=== PATIENT | male | born 1995 | race Caucasian/White ===

== ENCOUNTER 2017-04-26 09:17 | Emergency (ER) | payer MEDICAID ==
[2017-04-26 09:24] VITALS: O2SAT 98
--- NOTE | 2017-04-26 09:43 | EDPHY ---
H & P Time Seen by Provider: 04/26/17 09:27 HPI/ROS: CHIEF COMPLAINT: Left knee injury, left upper extremity injury HISTORY OF PRESENT ILLNESS: 21-year-old male presents to the emergency department after he fell off of his skateboard around 3:00 p.m. Yesterday. He was not wearing a helmet. He thinks that he did hit his head. He however did not lose consciousness. He has no headache. No neck or back pain. No chest pain or difficulty breathing. He has pain especially in his left knee. He is also having pain in his left wrist and left hand. He sustained multiple abrasions that he had on his own. He believes his tetanus shot is current. He denies abdominal pain or vomiting. Denies paresthesias in his upper or lower extremities. REVIEW OF SYSTEMS: Constitutional: No fever, no chills. Eyes: No double or blurry vision. ENT: No sore throat. Respiratory: No cough, no shortness of breath. Cardiac: No chest pain. Gastrointestinal: No abdominal pain, vomiting or diarrhea. Genitourinary: No dysuria. Musculoskeletal: As above. No neck or back pain. Skin: Abrasions per No rashes. Neurological: No headache. Past Medical/Surgical History: Concussions Social History: [employer] student Smoking Status: Never smoked Physical Exam: General Appearance: Alert, no distress. No visible signs of trauma to his head. Mentating normally and answering questions appropriately. Eyes: Pupils equal and round. Extraocular motions are all intact. ENT: Mouth: Mucous membranes moist. No hemotympanum. No dental injury or malocclusion. Respiratory: No wheezing, rhonchi, or rales, lungs are clear to auscultation. Cardiovascular: Regular rate and rhythm. Gastrointestinal: Abdomen is soft and nontender, no masses, no rebound or guarding, bowel sounds normal. Neurological: Alert and oriented x 3, cranial nerves II through XII grossly intact Skin: Superficial abrasion noted to the right posterior aspect elbow. Superficial abrasions noted to the palm of his left hand get there is also superficial abrasions to the anterior aspect and lateral aspect of his left knee. Warm and dry, no rashes. Musculoskeletal: Nontender to palpate along the cervical, thoracic or lumbar spine. Neck is supple. Extremities: Examination of the left hand reveals swelling specially over the thenar eminence. There is ecchymosis noted palm of the hand. He has pain with palpation to the 1st MCP joint of the left hand. He has limited range of motion of the left thumb secondary to pain and swelling. He has some mild pain with palpation along the proximal phalanx of the thumb as well as 1st metacarpal. Ecchymosis and swelling noted to the volar aspect of his left wrist. The patient has limited supination secondary to pain. He has limited flexion and extension. He has some mild pain with palpation in the anatomic snuffbox in the left hand. Left knee reveals obvious swelling, ecchymosis and abrasions to the anterior aspect. The patient is unable to lift his leg actively because of pain. Passively I a.m. Able to lift his left leg without discomfort however he is unable to hold his left leg in the air without significant discomfort. Left flexion of the left knee secondary to pain. Unable to assess ligament stability given gross swelling and discomfort. Antalgic gait. Psychiatric: Patient is oriented X 3, there is no agitation. Constitutional: Initial Vital Signs Temperature (C) 36.4 C 04/26/17 09:20 Heart Rate 71 04/26/17 09:20 Respiratory Rate 16 04/26/17 09:20 Blood Pressure 121/71 H 04/26/17 09:20 O2 Sat (%) 98 04/26/17 09:20 O2 Delivery Mode Room Air Allergies/Adverse Reactions: No Known Allergies Allergy (Unverified 04/26/17 09:21) Home Medications: Medication Instructions Recorded Albuterol Sulfate [Proventil Hfa] 6.7 gm IH 04/26/17 Medical Decision Making - Diagnostics Imaging: Discussed imaging studies w/ bilingual call center representative Radiologist, I viewed and interpreted images myself Procedures: The patient was placed in Ortho Glass thumb spica splint to the left wrist and straight leg knee immobilizer to the left knee and examined post application in good placement with normal INDUSTRIAL SALES REPRESENTATIVE. ED Course/Re-evaluation: 21-year-old male presents to the emergency department after he fell off his skateboard yesterday. X-rays reveal left patellar fracture, fracture of the base of the 1st metacarpal of the left thumb, and pisiform fracture of the left hand. The patient was appropriately splinted and placed in knee immobilizer. He may weightbear as tolerated. I did speak with the on-call orthopedic surgeon, Dr. Jacobson, who will see him in the office tomorrow to determine if surgical intervention is necessary. Patient was encouraged to ice and elevate and will return if he has any other concerns. Differential Diagnosis: Including but not limited to fracture, dislocation, contusion, sprain - Data Points Medications Given: Discontinued Medications Tetracaine/Epinephrine/Lidocaine (Let Gel Topical) 1 ea TP EDNOW ONE Stop: 04/26/17 10:15 Last Admin: 04/26/17 10:21 Dose: 1 ea Departure - Departure Disposition: Home, Routine, Self-Care Clinical Impression: Right hand fracture Qualifiers: Encounter type: initial encounter Fracture type: closed Qualified Code(s): S62.91XA - Unspecified fracture of right wrist and hand, initial encounter for closed fracture Patella fracture Qualifiers: Encounter type: initial encounter Fracture type: closed Fracture morphology: unspecified fracture morphology Fracture alignment: displaced Laterality: left Qualified Code(s): S82.002A - Unspecified fracture of left patella, initial encounter for closed fracture Condition: Good Instructions: Hand Fracture (ED), Patellar Fracture (ED) Additional Instructions: Keep splint on and keep it dry. Keep knee immobilizer on. Weightbear as tolerated. Ibuprofen 600 mg every 8 hr as needed for pain. Ice to help reduce swelling. Follow up with orthopedic surgery tomorrow to recheck. Referrals: Maya Jacobson MD [Medical Doctor] - 1 day without fail (Orthopedic surgeon on- call, call to arrange a follow-up appointment to be seen tomorrow.)
[2017-04-26] MEDS ORDERED: LET GEL TOPICAL 1 EA SYR TP ONE (10:14)
[2017-04-26 11:32] VITALS: BP 137/68; PULSE 85; RESP 95; TEMP 98.2
== END 2017-04-26 11:39 | disposition home or self-care (01) ==
DX: S62.201A Unspecified fracture of first metacarpal bone, right hand, initial encounter for closed fracture (principal); S82.002A Unspecified fracture of left patella, initial encounter for closed fracture; V00.131A Fall from skateboard, initial encounter; Y93.51 Activity, roller skating (inline) and skateboarding

== ENCOUNTER 2017-05-23 17:55 | Emergency (ER) | payer MEDICAID ==
[2017-05-23 18:01] VITALS: BP 119/77; PULSE 59; RESP 18; TEMP 98.4; O2SAT 93
--- NOTE | 2017-05-23 18:11 | EDPHY ---
H & P Time Seen by Provider: 05/23/17 18:02 HPI/ROS: CHIEF COMPLAINT: Concerned about infection and pins falling out HISTORY OF PRESENT ILLNESS: 21-year-old male seen emergency department originally on 04/26/2017 after he fell a skateboard was found to have fracture of the base of 1st metacarpal and pisiform fracture of the left hand. He was subsequently seen by Dr. Jacobson with surgery few days later. He is in the ER stating that the most dorsal pin has migrated outward and appears to almost be falling out, as well as erythema s. No fetid odor. No lymphangitic streaking. He is also needing refill of dressings. He has an appointment with Dr. Jacobson on Wednesday (today is Wednesday). No fever no chills. No nausea or vomiting. No flu- like symptoms. PHYSICAL EXAM (Prior to examination, patient consented to physical exam, hands were washed and my usual and customary physical exam procedures followed) 1) GENERAL: Well-developed, well-nourished, alert and oriented. Appears to be in no acute distress. Smiling. 2) HEAD: Normocephalic 3) HEENT: Pupils equal, round, reactive to light bilaterally. 4) LUNGS: Breathing comfortably. 5) MUSCULOSKELETAL: Dressing taken down. No fetid odor. No discharge. The most dorsal pin has migrated externally but is still in place my examine with his hand in pronation with his hand. When the patient supinated his hand the most dorsal pin spontaneously fell out. I did not remove the pin. There is no lymphangitic streaking. There is a slight amount of halo erythema at each pain insertion site. Soft compartments. Otherwise, Normal coloration. Crepitus. 6) SKIN: No lymphangitic streaking 7) VASCULAR: pulses and cap refill present are brisk DIFFERENTIAL DIAGNOSIS: in no particular order including but not limited to misplaced hardware, infected hardware, septic arthritis, surgical wound infection Smoking Status: Never smoked Constitutional: Initial Vital Signs Temperature (C) 36.9 C 05/23/17 17:59 Heart Rate 59 L 05/23/17 17:59 Respiratory Rate 18 05/23/17 17:59 Blood Pressure 119/77 05/23/17 17:59 O2 Sat (%) 93 05/23/17 17:59 O2 Delivery Mode Room Air Allergies/Adverse Reactions: No Known Allergies Allergy (Verified 05/23/17 17:58) Home Medications: Medication Instructions Recorded Albuterol Sulfate [Proventil Hfa] 6.7 gm IH 04/26/17 Cephalexin [Keflex] 500 mg PO TID 7 Days cap 05/23/17 MDM/Departure - MDM Procedures: Procedure: Splint AnOrtho Glass thumb spica was applied by ER soil conservation technician after the wounds were dressed with antibiotic ointment and nonstick sterile dressings. After application of the splint I returned and re-examined the patient. The splint was adequately immobilizing the joint and distal to the splint the patient's circulation and sensation were intact. Patient shows no signs of compartment syndrome. Was given orthopedic precautions. Medications Given: Discontinued Medications Cephalexin (Keflex 500 Mg Prepack#4) 1 btl TAKEHOME EDNOW ONE PRN Reason: Protocol Stop: 05/23/17 19:09 Last Admin: 05/23/17 19:19 Dose: 1 btl ED Course/Re-evaluation: 6:52 p.m.: I consulted and communicated electronically with Dr. Jacobson. As today is Wednesday and as the patient has an upcoming appointment on Wednesday with Dr. Jacobson, Dr. Jacobson informs that he was planning on removing the pins on Wednesday anyway. Recommends no further intervention from the emergency department tonight, recommends patient keep his appointment on Wednesday. Regarding the patient's Velcro thumb spica states that this is quite uncomfortable places stress on particular areas. Subsequently an Orthoglass thumb spica splint was built for the patient resulting in more comfort. I do not identify signs of deep space infection, is negative kanavel sign. He is concerned about a slight amount of erythema. He has been informed that early infection is not ruled out. Plan will be starting the patient on Keflex and keep his appoint with Dr. Jacobson on Wednesday. Patient feels comfortable this plan. Care of patient under supervision of secondary supervising physician Dr Bruce. - Depart Disposition: Home, Routine, Self-Care Clinical Impression: Hand fracture, left Qualifiers: Encounter type: subsequent encounter Fracture type: closed Fracture healing: with routine healing Qualified Code(s): S62.92XD - Unspecified fracture of left wrist and hand, subsequent encounter for fracture with routine healing Condition: Good Instructions: Cephalexin (By mouth), Hand Fracture (ED) Additional Instructions: Keep the area dressed and splinted until you are seen by Dr. Jacobson. Keep her appointment on Wednesday with Dr. Jacobson Prescriptions: Cephalexin [Keflex] 500 mg PO TID 7 Days cap Referrals: Maya Jacobson MD [Medical Doctor] - 05/25/17 (Keep your appointment with Dr. Jacobson on Wednesday)
[2017-05-23] MEDS ORDERED: CEPHALEXIN 500MG PREPACK#4 BTL TAKEHOME ONE (19:08)
== END 2017-05-23 19:22 | disposition home or self-care (01) ==
DX: S62.92XD Unspecified fracture of left hand, subsequent encounter for fracture with routine healing (principal); V00.131D Fall from skateboard, subsequent encounter

== ENCOUNTER 2017-11-07 19:23 | Emergency (ER) | payer MEDICAID ==
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
[2017-11-07] MEDS ORDERED: CEPHALEXIN 500MG PREPACK#4 BTL TAKEHOME ONE (20:50)
[2017-11-07] MEDS ORDERED: OXYCODONE/APAP 5/325MG PREPACK#4 BTL TAKEHOME ONE (20:50)
[2017-11-07] MEDS ORDERED: SULFAMET/TMP DS PREPACK#2 BTL TAKEHOME ONE (20:50)
[2017-11-07 22:00] VITALS: BP 135/79
== END 2017-11-07 22:00 | disposition home or self-care (01) ==
PROC: 2W3EX1Z Immobilization of Right Hand using Splint (ICD-10-PCS; principal; 2017-11-07)
DX: S61.411A Laceration without foreign body of right hand, initial encounter (principal); W22.09XA Striking against other stationary object, initial encounter